=== PATIENT | female | born 1970 | race Hispanic/Latino ===

== ENCOUNTER 2018-08-30 20:47 | Emergency (ER) | payer OTHER ==
[2018-08-30] MEDS ORDERED: LIDOCAINE HCL-MPF 1% 2ML VIAL ONE (21:55)
[2018-08-30] MEDS ORDERED: CEFTRIAXONE SODIUM 1 GM ONE (21:55)
[2018-08-30] MEDS ORDERED: HYDROCODONE/ACETAMINOPHEN 10/325 MG TAB ONE (21:55)
== END 2018-08-30 23:12 | disposition home or self-care (01) ==
LOC: EDH 20:47
DX: S61.231A Puncture wound without foreign body of left index finger without damage to nail, initial encounter (principal); E11.9 Type 2 diabetes mellitus without complications; I10 Essential (primary) hypertension; Z90.49 Acquired absence of other specified parts of digestive tract; W55.01XA Bitten by cat, initial encounter; Y93.89 Activity, other specified; Y92.098 Other place in other non-institutional residence as the place of occurrence of the external cause; Y99.8 Other external cause status
CPT/HCPCS: 73140; 81025; 96372; 99284; J0696; J3490

== ENCOUNTER 2018-08-31 13:17 | Emergency (ER) | payer OTHER ==
[2018-08-31] MEDS ORDERED: TETANUS/DIPHTHERIA TOXOID [ADULT] 0.5 ML VIAL IM ONE (13:49)
== END 2018-08-31 14:48 | disposition home or self-care (01) ==
LOC: EDH 13:17
DX: S61.231D Puncture wound without foreign body of left index finger without damage to nail, subsequent encounter (principal); I10 Essential (primary) hypertension; E11.9 Type 2 diabetes mellitus without complications; Z98.890 Other specified postprocedural states; W55.01XD Bitten by cat, subsequent encounter
CPT/HCPCS: 90471; 90714